=== PATIENT | male | born 1965 | race Two or more races ===

== ENCOUNTER 2018-02-28 07:21 | Inpatient (IN) | payer BC ==
[~2018-02-28] VITALS: Ht 190.5 cm; Wt 106.6 kg
[2018-02-28 07:36] VITALS: Ht 190.5 cm; Wt 106.6 kg
[2018-02-28 08:27] LABS: BASOPHIL % 0.6 % (0-2); PLATELET COUNT 204 x10^3mcL (130-400); RED CELL DISTRIBUTION WIDTH 11.6 % (11.5-14.5)
[2018-02-28 08:32] LABS: CALCIUM 8.7 mg/dL (8.5-10.1); CARBON DIOXIDE 27.7 mmol/L (21-32); CHLORIDE SERUM 103 mmol/L (98-107); CREATININE SERUM 0.9 mg/dL (0.7-1.3); GFR1 > 60 mL/min; GLUCOSE SERUM 126 mg/dL (74-106); POTASSIUM SERUM 4.1 mmol/L (3.5-5.1); SODIUM SERUM 138 mmol/L (136-145)
[2018-02-28 08:36] LABS: ALBUMIN 3.8 g/dL (3.4-5.0); ALKALINE PHOSPHATASE 72 U/L (46-116); AST/SGOT 13 U/L (15-37); BILIRUBIN TOTAL 0.24 mg/dL (0.20-1.00); LIPASE 154 IU/L (73-393); TOTAL PROTEIN, SERUM 7.6 g/dL (6.4-8.2); TRIGLYCERIDES 87 mg/dL (<150)
[2018-02-28 08:38] LABS: CHOLESTEROL 114 mg/dL (<200); CHOLESTEROL/HDL RATIO 3.7; HDL CHOLESTEROL 31 mg/dL (40-60)
[2018-02-28 08:44] LABS: ALT/SGPT 26 U/L (16-63)
[2018-02-28 08:47] LABS: FREE T4 1.07 ng/dL (0.76-1.46); FREE THYROXINE INDEX 3.4 ug/dL (1.4-4.5); T4(THYROXINE) 10.3 ug/dL (4.7-13.3)
[2018-02-28 08:51] LABS: microscopic required? NO
[2018-02-28 08:56] LABS: T3 TOTAL 1.25 ng/mL
[2018-02-28 09:02] LABS: UA SPECIFIC GRAVITY 1.015 (1.005-1.035); urine erythrocyte NEGATIVE (NEGATIVE)
[2018-02-28 09:49] LABS: AMPHETAMINE QUAL UR NONE DETECTED (See below)
[2018-02-28] MEDS ORDERED: FARXIGA10 MG PO (10:15)
[2018-02-28] MEDS ORDERED: ATORVASTATIN CA20 M1 PO (10:16)
[2018-02-28 11:52] LABS: MAGNESIUM 2.1 mg/dL (1.8-2.4); PHOSPHOROUS 3.4 mg/dL (2.5-4.9)
[2018-02-28] MEDS ORDERED: LISINOPRIL10 MG PO (13:46)
[2018-02-28 17:38] VITALS: BP 115/77
[2018-02-28 20:57] VITALS: BP 111/57
[2018-03-01 04:43] VITALS: BP 113/64
[2018-03-01 06:48] LABS: BASOPHIL % 0.7 % (0-2); PLATELET COUNT 207 x10^3mcL (130-400); RED CELL DISTRIBUTION WIDTH 12.5 % (11.5-14.5)
[2018-03-01 06:56] LABS: CALCIUM 8.8 mg/dL (8.5-10.1); CARBON DIOXIDE 27.5 mmol/L (21-32); CHLORIDE SERUM 103 mmol/L (98-107); CREATININE SERUM 0.9 mg/dL (0.7-1.3); GFR1 > 60 mL/min; GLUCOSE SERUM 131 mg/dL (74-106); POTASSIUM SERUM 4.1 mmol/L (3.5-5.1); SODIUM SERUM 137 mmol/L (136-145)
[2018-03-01 08:45] VITALS: BP 114/76
[2018-03-01 12:34] VITALS: BP 112/55
[2018-03-01 16:31] VITALS: BP 140/80
[2018-03-01 21:24] VITALS: BP 146/81
== END 2018-03-01 21:36 | disposition left against medical advice (07) | DRG 206 ==
LOC: ED 07:21 → DU 10:24
PROVIDERS: Family Medicine; Specialist
DX: M94.0 Chondrocostal junction syndrome [Tietze] (principal); E11.65 Type 2 diabetes mellitus with hyperglycemia; K21.9 Gastro-esophageal reflux disease without esophagitis; E78.5 Hyperlipidemia, unspecified; I10 Essential (primary) hypertension; F17.210 Nicotine dependence, cigarettes, uncomplicated; Z53.21 Procedure and treatment not carried out due to patient leaving prior to being seen by health care provider; I08.1 Rheumatic disorders of both mitral and tricuspid valves; I25.10 Atherosclerotic heart disease of native coronary artery without angina pectoris; Z71.6 Tobacco abuse counseling
CPT/HCPCS: 82962; 83880; 84439; A9500; J2785; J7030; Q0092